=== PATIENT | female | born 1965 | race African-American/Black ===

== ENCOUNTER 2024-05-03 00:48 | Emergency (ER) | payer OTHER, MEDICAID ==
[~2024-05-03] VITALS: Ht 170.2 cm; Wt 91.0 kg
[2024-05-03 00:56] VITALS: TEMP 98.4
[2024-05-03 01:53] VITALS: O2SAT 97
[2024-05-03] MEDS: MIDAZOLAM HCL 2 MG/2 ML VIAL IV ONE (01:53)
[2024-05-03 02:21] LABS: EOSINOPHILS % 3.2 % (0.0-5.0); HEMATOCRIT. 39.6 % (36.0-48.0); LYMPHOCYTES % 36.2 % (20.0-50.0); MEAN CORPUSCULAR HEMOGLOBIN 29.5 pg (28.0-32.0); MEAN CORPUSCULAR HGB CONC 32.8 g/dL (31.0-37.0); MEAN CORPUSCULAR VOLUME 89.8 fL (81.0-99.0); MONOCYTES % 13.9 % (2.0-8.0); NEUTROPHILS % 45.7 % (40.0-76.0); PLATELET 216 x1000/uL (130-400); RED BLOOD CELL COUNT 4.41 mill/uL (4.2-5.4); RED CELL DISTRIBUTION WIDTH 16.6 % (11.6-14.6); WHITE BLOOD COUNT 6.1 x1000/uL (4.5-11.0)
[2024-05-03 02:31] LABS: CHLORIDE 110 mEq/L (98-107); POTASSIUM 3.4 mEq/L (3.5-5.1); SODIUM 142 mEq/L (136-145)
[2024-05-03 02:32] LABS: CALCIUM 9.3 mg/dL (8.7-10.4); CARBON DIOXIDE 23 mEq/L (21-32)
[2024-05-03 02:37] LABS: CREATININE 1.2 mg/dL (0.6-1.0); GLUCOSE 95 mg/dL (70-105); UREA NITROGEN BLOOD 10 mg/dL (9-23)
[2024-05-03 02:38] LABS: TROPONIN I HIGH SENSITIVITY 20 ng/L (3.0-34)
[2024-05-03 02:39] LABS: ACETAMINOPHEN < 2 ug/mL (10-30)
[2024-05-03 02:45] LABS: ETHANOL BLOOD < 10 mg/dL (<10)
[2024-05-03 04:52] LABS: TROPONIN I HIGH SENSITIVITY 19 ng/L (3.0-34)
[2024-05-03] MEDS ORDERED: MAGNESIUM/ALUMINUM HYDROXIDE/SIMETHICONE 30ML UDC PO PRN (06:30)
[2024-05-03] MEDS ORDERED: CLONIDINE 0.1MG TABLET PO PRN (06:30)
[2024-05-03] MEDS ORDERED: NITROGLYCERIN 0.4MG TABLET SL SL PRN (06:30)
[2024-05-03] MEDS ORDERED: ZOLPIDEM TARTRATE 5MG TABLET PO PRN (06:30)
[2024-05-03] MEDS ORDERED: ACETAMINOPHEN 325MG TABLET PO PRN ×2 (06:30)
[2024-05-03] MEDS ORDERED: GUAIFENESIN 200MG/10ML SUGAR FREE UDC PO PRN (06:30)
[2024-05-03] MEDS ORDERED: DOCUSATE SODIUM 100MG CAPSULE PO PRN (06:30)
[2024-05-03] MEDS ORDERED: ONDANSETRON HCL 4MG/2ML INJ IV PRN (06:30)
[2024-05-03] MEDS ORDERED: IPRATROPIUM/ALBUTEROL 0.5-3(2.5)MG/3ML NEB NEB PRN (06:30)
[2024-05-03] MEDS: POTASSIUM CHLORIDE 20MEQ TABLET SR PO NR (06:50)
[2024-05-03] MEDS: KETOROLAC 15MG/ML VIAL IV PRN (06:52)
[2024-05-03] MEDS: LACTATED RINGERS 1,000 ML IV SCH (06:59)
[2024-05-03 08:08] VITALS: BP 124/93; PULSE 87; RESP 23; O2SAT 94
[2024-05-03] MEDS ORDERED: FAMOTIDINE 20MG TABLET PO SCH (09:00)
[2024-05-03] MEDS ORDERED: ENOXAPARIN 30MG/0.3ML SYR SUBCUT SCH (09:00)
[2024-05-03] MEDS ORDERED: ASPIRIN 81MG EC TABLET PO SCH (09:00)
== END 2024-05-03 08:32 | disposition short-term general hospital (02) ==
LOC: ER 00:56
DX: R41.82 Altered mental status, unspecified (principal); I10 Essential (primary) hypertension; J45.909 Unspecified asthma, uncomplicated
CPT/HCPCS: 80048; 80307; 80329; 80320; 83036; 83605; 85025; 84484; 36415; 71045; 70450; 96361; 96374; 96375; 99285; J1885; J2250; G0480